=== PATIENT | male | born 1960 | race Caucasian/White ===

== ENCOUNTER 2024-04-23 18:56 | Emergency (ER) | payer OTHER, SELFPAY ==
[2024-04-23 18:59] VITALS: BP 123/78
[2024-04-23 19:28] VITALS: BMI 23.9
[2024-04-23 19:32] VITALS: BP 125/70
[2024-04-23 19:32] LABS: % Basophils 0.4 % (0-2); % Eosinophils 0.3 % (0-6); % Immature Granulocytes 0.4 % (0-0.5); % Lymphocytes 30.2 % (20.5-51.1); % Monocytes 7.7 % (1.7-9.3); Absolute Monocytes 0.8 10^3/uL (0.1-0.6); Absolute Neutrophils 6.1 10^3/uL (1.4-6.5); Hematocrit 42.5 % (39.0-52.0); Hemoglobin 15.2 g/dL (13.0-18.0); Mean Corp Hgb Conc. 35.8 g/dL (33.0-37.0); Mean Corpuscular Hgb 30.2 pg (27.0-31.0); Mean Corpuscular Volume 84.5 fL (80.0-94.0); Nucleated Red Blood Cells % 0 % (-); Platelet Count 233 10^3/uL (130-400); Red Blood Cell Count 5.03 10^6/uL (4.70-6.10); Red Cell Dist. Width 12.9 % (11.5-14.5)
[2024-04-23 19:53] LABS: ALT (SGPT) 32 U/L (0-50); AST (SGOT) 41 U/L (17-59); Albumin 4.9 g/dl (3.5-5.0); Alkaline Phosphatase 93 U/L (38-126); Blood Urea Nitrogen 14 mg/dl (9-20); Calcium 9.6 mg/dl (8.4-10.2); Carbon Dioxide 22 mmol/L (22-30); Chloride 102 mmol/L (98-107); Estimated Creatinine Clearance 107 ml/min; Glucose 145 mg/dl (70-99); Potassium 4.4 mmol/L (3.5-5.1); Sodium 135 mmol/L (135-145); Total Bilirubin 0.7 mg/dl (0.2-1.3); Total Protein 7.8 g/dl (6.3-8.2); eGFR > 60.00
[2024-04-23 20:00] VITALS: BP 119/64
[2024-04-23 20:05] LABS: Troponin I < 0.012 ng/ml
--- NOTE | 2024-04-23 20:21 | ED.GENMED ---
History of Present Illness
General
Chief Complaint: Dizziness
Source: patient
Exam Limitations: none
Time Seen by Provider: 04/23/24 20:10
History of Present Illness
History of Present Illness:
64-year-old male sudden onset of vertigo with a sudden whiplash neck like motion to remove headphones. No neck pain no headache no focal neurologic symptoms. Had a history of a similar episode years ago when [place] fine prior to this after the episode. Was lifting weights prior.
Past History
Past History
ED Past Medical History: None
ED Past Surgical History: Orthopedic and Other (Hernia repair)
Social History
Tobacco: Non-smoker
Personal:
Living: with family
Employment: Employed
Review of Systems
Review of Systems
All Other Systems: Not applicable
Respiratory: Reports no symptoms
Cardiac: Reports no symptoms
Neurological: Denies headache, weakness or numbness
Phy Exam
Physical Exam
Physical Exam:
GENERAL: Alert and oriented in no apparent distress
EYE: Orbits normal.
NECK: Supple, no carotid bruit
ENT: Pharynx without erythema
CARDIAC: Regular rate and rhythm without any obvious murmurs.
LUNGS: Clear breath sounds,normal
ABDOMEN: Soft, without focal tenderness or distention
NEUROLOGICAL: Alert and oriented , cranial nerves II through XII intact. Speech normal. [id number] normal. No drift. Brfl-[id number] normal. Light touch intact.
SKIN: Warm and dry, no rash or lesion, no discoloration, skin intact.
MUSCULOSKELETAL: No edema,no deformity.Good color
PSYCH: Normal and appropriate interaction.
Course
Orders/Labs/Results
Orders:
Orders
04/23/24 19:03
ECG [Electrocardiogram (*1)] Urgent
Reason for Study: Vertigo / Dizzy
04/23/24 19:04
EKG- Treatment ONCE
04/23/24 19:12
Complete Blood Count/With Diff Urgent
Comprehensive Metabolic Panel Urgent
Troponin I Urgent
04/23/24 20:19
CT Head & Neck Angio W/wo IV Urgent
Comment:
Reason For Exam: Sudden vertigo with whiplash like injury
04/23/24 20:20
Meclizine [Antivert] 25 mg PO NOW STA
Ondansetron Injectable [Zofran] 4 mg IV NOW STA
Abnormal Lab Results
04/23/24
19:12
Absolute Monos (auto) 0.8 H 10^3/uL
(0.1-0.6)
Glucose 145 H mg/dl
(70-99)
04/23/24 19:12
04/23/24 19:12
Vital Signs
Initial and Last Documented VS:
Initial Vital Signs
Temp Pulse Resp BP Pulse Ox
98.3 F 79 18 123/78 99
04/23/24 18:59 04/23/24 18:59 04/23/24 18:59 04/23/24 18:59 04/23/24 18:59
Last Documented Vital Signs
Temp Pulse Resp BP Pulse Ox
98.3 F 68 11 120/75 98
04/23/24 18:59 04/23/24 21:45 04/23/24 21:45 04/23/24 21:40 04/23/24 21:30
MDM/Problems Addressed
Differential Diagnosis Includes:
Patient with sudden dizziness/vertigo associated with whiplash like head motion. No other neurologic issues. No risk factors. However with the sudden whiplash like motion dissection has to be considered. Patient will be sent immediately to CT
*Radiology
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 Anomalous venous developmental left frontal lobe)
*Pulse Oximetry
Patient hypoxic: no
*EKG
Interpreted by ED Provider?: Yes
Interpretation: normal
Comparison EKG: no changes
Heart Rate: 75
Rate: normal
Rhythm: sinus
[place]: left axis deviation
Interval: normal interval
QRS Pattern: right bundle branch block (inc)
Ischemia: no ischemia
*Commercial Loan Manager Interpretation
Rate: normal
Interpretation: normal
Heart Rate: 77
Rhythm: sinus
*Critical Care Note
Total Time (30-74mins, 75-104mins- exclusive of procedures): Not Applicable
Update Note
Update Note:
Patient looks well. Ambulated well. Again nonfocal exam. No acute dissection or occlusion. Symptoms clearly happen with the shaking motion of his head to get headphones off. This has happened previously. Discussed the remote chance this was a
central issue. And offered admission and observation although clinically with a very low suspicion for central etiology. They have elected for outpatient observation.
ED Attending Note
-
Portions of this chart may have been created with voice recognition software.� Occasional wrong word or��sound alike� substitutions may have occurred due to the inherent limitations of voice recognition software.
Discharge Plan
Departure
Patient Disposition: Home (Routine Discharge)
Date of Disposition: 04/23/24
Time of Disposition: 21:50
Patient with high blood pressure during this ER visit?: No
Discharge Problem:
Severe vertigo, Cervical disc disease/spinal stenosis, Hypoplastic right vertebral artery
Instructions: Vertigo (a Type of Dizziness) (DC)
Prescriptions:
New
meclizine 25 mg tablet
25 mg PO TID PRN (Reason: dizziness) Qty: 14 0RF
No Action
cephalexin [Keflex] 500 MG capsule
500 mg PO QID Qty: 28 0RF
hydrocodone-acetaminophen 1 TABLET tablet
1 tab PO Q4HPRN PRN (Reason: moderate pain.) Qty: 20 0RF
Referrals:
Leon Allison, DO [Family Provider] - Follow up in 2-3 days
Activity Restrictions/Additional Instructions:
Close follow-up with your primary physician
Meclizine for vertigo
Return immediately with any other unusual neurologic symptoms headache focal numbness tingling weakness etc.
Interventions
Interventions:
*Risk Screen - Suicide Last Done: 04/23/24 18:59
*General Assessment Last Done: 04/23/24 18:59
*Neglect/Abuse Screening Last Done: 04/23/24 18:59
ED- Fall Risk Assessment Last Done: 04/23/24 19:34
*ED COVID-19 Vaccine History Last Done: 04/23/24 19:28
*Nursing Disposition Last Done: 04/23/24 21:59
ED- Neurological Assessment Last Done: 04/23/24 19:29
ED Swallowing Screen Last Done: 04/23/24 19:30
Discharge Date and Time
Discharge Date/Time: 04/23/24 22:00
Print Language: [place]
[2024-04-23] MEDS: ANTIVERT 25 MG PO (20:23)
[2024-04-23] MEDS: ZOFRAN 4 MG IV (20:23)
[2024-04-23 21:40] VITALS: BP 120/75
== END 2024-04-23 22:00 | disposition home or self-care (01) ==
LOC: EMR 18:56
PROVIDERS: Emergency Medicine; EMERGENCY PHYSICIAN Emergency Medicine; FAMILY PHYSICIAN Family Medicine
DX: R42 Dizziness and giddiness (principal); M50.90 Cervical disc disorder, unspecified, unspecified cervical region; M48.00 Spinal stenosis, site unspecified; Q27.8 Other specified congenital malformations of peripheral vascular system; I45.10 Unspecified right bundle-branch block
CPT/HCPCS: 99285; 96374; 70496; 70498; 80053; 84484; 85025; 93005; Q9967

== ENCOUNTER → 2025-03-22 07:13 | Outpatient (REF) | payer OTHER, SELFPAY | LOC: RAD 07:13 | PROVIDERS: ATTENDING PHYSICIAN Family Medicine | DX: E04.1 Nontoxic single thyroid nodule (principal) | CPT/HCPCS: 76536 ==